=== PATIENT | male | born 1975 | race Caucasian/White ===

== ENCOUNTER 2023-11-08 05:59 | Day surgery (SDC) | payer MEDICAID ==
[2023-11-07 09:56] VITALS: BMI 26.4
[2023-11-08] MEDS ORDERED: Bupivacaine PF 0.5% 30 ML VIAL ONE (06:38)
[2023-11-08] MEDS ORDERED: PROPOFOL 20 ML ONE (06:58)
[2023-11-08] MEDS ORDERED: Lidocaine 2% PF 5 ML VIAL ONE (06:58)
[2023-11-08] MEDS ORDERED: fentaNYL 50 mcg/mL 1 mL Vial ONE ×2 (06:58→09:33)
[2023-11-08] MEDS ORDERED: Midazolam HCl 2 mg/2 ml Vial ONE (06:58)
[2023-11-08] MEDS ORDERED: Dexamethasone 4 mg/ml Vial ONE (06:58)
[2023-11-08] MEDS ORDERED: Bupivacaine/Epinephrine 0.25% 30 ML VIAL ONE (06:59)
[2023-11-08] MEDS ORDERED: Clindamycin/D5W 900 mg/50 ml Premix Bag ONE (07:15)
[2023-11-08 07:23] LABS: Hematocrit 36.5 % (38.8-50.0); Hemoglobin 12.8 g/dL (13.5-17.5); Mean Corpuscular HGB CONC 35.1 g/dL (32.0-36.0); Mean Corpuscular Hemoglobin 30.6 pg (27.0-33.0); Mean Corpuscular Volume 87.3 fl (81.2-95.1); Mean Platelet Volume 9.5 fl (7.4-10.4); Platelet Count 315 10x3/uL (150-450); RBC Distribution Width 12.5 % (11.5-14.5); Red Blood Cell (RBC) Count 4.18 10x6/uL (4.32-5.72)
[2023-11-08] MEDS ORDERED: KETAMINE 100 MG/ML (5ML VIAL) ONE (07:27)
[2023-11-08] MEDS ORDERED: Fentanyl 250 MCG/5 ML VIAL ONE (07:44)
[2023-11-08] MEDS ORDERED: EPINEPHrine 1 MG/ML AMP ONE (07:49)
[2023-11-08 07:51] LABS: Anion Gap 11 mmol/L (10-20); BUN (Urea Nitrogen) 13 mg/dL (8.9-20.6); Calc. Creatinine Clearance 126 mL/min (70-130); Carbon Dioxide 26 mmol/L (22-29); Chloride 107 mmol/L (98-107); Estimated GFR 105; Glucose 95 mg/dL (70-105); Potassium 3.9 mmol/L (3.5-5.1); Sodium 140 mmol/L (136-145)
[2023-11-08] MEDS ORDERED: SUGAMMADEX SODIUM 200 MG/2 ML VIAL ONE (08:51)
[2023-11-08] MEDS ORDERED: Ketorolac Tromethamine 30 MG (1 mL) VIAL ONE (09:27)
[2023-11-08] MEDS ORDERED: HYDROcodone/Acetaminophen 5/325 mg Tablet ONE (09:44)
== END 2023-11-08 10:35 | disposition home or self-care (01) ==
LOC: CSHSDC 05:59
PROVIDERS: ATTEND Orthopaedic Surgery
PROC: 0QSN04Z Reposition Right Metatarsal with Internal Fixation Device, Open Approach (ICD-10-PCS; principal; 2023-11-08)
DX: S92.321A Displaced fracture of second metatarsal bone, right foot, initial encounter for closed fracture (principal); S92.331A Displaced fracture of third metatarsal bone, right foot, initial encounter for closed fracture; S92.341A Displaced fracture of fourth metatarsal bone, right foot, initial encounter for closed fracture; S92.351A Displaced fracture of fifth metatarsal bone, right foot, initial encounter for closed fracture; Z88.0 Allergy status to penicillin; W11.XXXA Fall on and from ladder, initial encounter
CPT/HCPCS: 80048; 85027; 93005; 93010; C1713; J0171; J0665; J1100; J1885; J2001; J2250; J2704; J3010; J3490